=== PATIENT | female | born 1960 | race Caucasian/White ===

== ENCOUNTER 2016-09-13 10:24 | Emergency (ER) | payer OTHER ==
[~2016-09-13] VITALS: Ht 175.3 cm; Wt 65.9 kg
[2016-09-13 10:30] VITALS: BP 134/85; PULSE 77; RESP 14; O2SAT 100
--- NOTE | 2016-09-13 10:51 | ED.REPORT ---
HPI-General Illness Date of Service Sep 13, 2016 ED Provider: Dr. Castellanos Pt is a 56 year old female with a hx of hyperlipidemia presenting to the ED complaining of intermittent palpitations lasting for a few seconds onset when she woke up this morning. Associated symptoms include fatigue and weakness. She states that throughout the night last night, she kept having Charley horses intermittently. She was taking baby Aspirin daily for the Charley horses, which she gets regularly, but was told not to take it anymore so she stopped. For the last year, she has noticed that her heart has been beating faster than normal when she stands up or walks around. She denies any history of cancer, PE, DVT, heart disease, recent travel, or recent trauma or injury. Nursing Notes Stated Complaint: CHEST PAIN Chief Complaint: Chest Pain Nursing Notes Reviewed: Yes Allergies: Coded Allergies: No Known Allergies (Unverified , 09/13/16) Scheduled Cholecalciferol (Vitamin D3) (Vitamin D) 400 Unit/1 Ml Drops 400 UNIT PO DAILY General Time Seen by MD: 10:50 Chief Complaint Other (Palpitations) Hx Obtained From: Patient Arrived By: Walk-in Sudden in Onset?: Yes Onset Occurred: Just prior to arrival Symptom Duration: Since onset Severity: Current: No pain currently Severity: Maximum: No pain Recent Healthcare: No recent doctor visit, No recent hospitalization Similar Sx Previous: No Past Medical History Past Medical History UTIs hyperlipidemia Past Surgical History denies Smoking History Unknown if Ever Smoker Ambulatory Status Independent Review of Systems Charley horses Full Review of Systems Constitutional: Reports: Weakness - generalized Respiratory: Denies: Shortness of breath Cardiovascular: Reports: Palpitations, Denies: Chest pain Complete sys rev & neg: except as marked. Physical Exam Vital Signs Vital Signs Date Time Temp Pulse Resp B/P Pulse Ox O2 Delivery O2 Flow Rate FiO2 09/13/16 14:25 36.5 71 16 136/80 99 Room Air 09/13/16 12:18 92 126/86 09/13/16 12:15 71 115/70 09/13/16 10:30 36.5 77 14 134/85 100 Room Air Initial VS: Reviewed General/Constitutional: Well-developed, Well-nourished Head / Eyes: Atraumatic, Normocephalic, PERRL ENT: Mucous membranes moist, Conjunctiva normal, No scleral icterus Neck: Supple, Non-tender, Full range of motion Respiratory: Breath sounds normal, Clear to auscultation, No respiratory distress Abdomen / GI: Soft, Non-tender, No guarding, No rebound, No distention Extremities: Vascular intact, Neuro intact, No swelling, No tenderness Skin: Warm, Dry, No cyanosis Neurologic: Alert, Oriented, Nonfocal Psychiatric: Mood/affect normal, Behavior normal, Normal thought content Cardiovascular: Heart rate NL, Regular rhythm, Heart sounds NL, No gallop, No murmurs, No rubs Interpretation & Diagnostics Lab Results Interpretation Result Diagram: 09/13/16 1102 09/13/16 1102 Test 09/13/16 11:02 09/13/16 11:04 09/13/16 11:43 09/13/16 13:05 White Blood Count 6.2th/mm3 (3.8-10.1) Red Blood Count 4.97mil/mm3 (3.90-5.20) Hemoglobin 14.2g/dL (12.0-15.6) Hematocrit 41.5% (35.0-46.0) Mean Corpuscular Volume 83.5fL (81-100) Mean Corpuscular Hemoglobin 28.6pg (27.0-35.0) Mean Corpuscular Hemoglobin Concent 34.2% (32.0-37.0) Red Cell Distribution Width 12.7% (12.3-15.4) Platelet Count 208bil/L (150-400) Neutrophils (%) (Auto) 74.0% (40-74) Lymphocytes (%) (Auto) 19.6% (14-46) Monocytes (%) (Auto) 4.7% (4-12) Eosinophils (%) (Auto) 1.3% (0-5) Basophils (%) (Auto) 0.2% (0-3) Sodium Level 138mEq/L (134-144) Potassium Level 4.3mEq/L (3.5-5.2) Chloride Level 100mEq/L (97-108) Carbon Dioxide Level 26mmol/L (18-29) Blood Urea Nitrogen 18mg/dL (6-24) Creatinine 0.76mg/dL (0.57-1.00) Estimat Glomerular Filtration Rate 113mL/min (>59) Glucose Level 118mg/dL (60-99) Calcium Level 9.6mg/dL (8.5-10.1) Magnesium Level 2.0mg/dL (1.6-2.6) Total Bilirubin 0.6mg/dL (0.0-1.2) Aspartate Amino Transf (AST/SGOT) 25U/L (0-50) Alanine Aminotransferase (ALT/SGPT) 12U/L (0-32) Alkaline Phosphatase 117U/L (25-150) Total Protein 7.7g/dL (6.4-8.4) Albumin 4.3g/dL (3.4-5.0) Hold Urine Received (Received) D-Dimer < 0.50mg/L FEU (<0.50) Thyroid Stimulating Hormone (TSH) 1.340uIU/mL (0.450-4.500) Troponin T < 0.010ug/L (0.0-0.011) ECG Interpretation Time: 11:01 Interpreted by: ED physician Normal ECG Interpretation: Normal ECG w/ rate of... (73), Normal sinus rhythm Time: 13:53 Interpreted by: ED physician Normal ECG Interpretation: Normal ECG w/ rate of... (67) X-Ray Chest Interpretation Chest Xray Interpretation: IMPRESSION: Normal for age, source of chest pain is not seen. Dictated by: Darrius Bains M.D. on 09/13/2016 at 11:21 View: Portable, 1 view Interpretation / Wet Read by: Interpret - Radiologist Re-Eval/Medical Decision Med Decision/Clinical Course Palpitations, symptoms are not typical of acute coronary syndrome, serial troponins, d-dimer, TSH and EKGs are all reassuring. Patient has been asymptomatic since in the ER. Will discharge and recommend strict outpatient follow-up and return precautions. Time of Eval: 11:27 Patient Status: Condition improved Re-Evaluation/Progress Note: Discussed the pt's heart rhythm. Pt reports that she is an occasional drinker and that she last drank alcohol yesterday. Time of Eval: 14:09 Patient Status: Condition improved Re-Evaluation/Progress Note: Discussed plan for discharge. Pt understands and agrees with plan. Counseled Regarding: Diagnosis, Lab results, Need for follow-up, When/why to return to ED Discharge & Departure Primary Impression: Palpitation Disposition: Home Discharge Condition All VS Reviewed: Yes Condition: Improved Patient Instructions: Palpitations (ED) Additional Instructions: No dangerous cause for your heart palpitations was identified today. Your x ray , labs, and EKGs all looked good. They did not show any sign of heart attack or blood clot. Return to the ER if you develop any new or worsening symptoms such as worsening palpitations, loss of consciousness, or crushing chest pain. Take 81 mg daily of aspirin. Follow up with your primary care doctor in the next week for further cardiology testing. Referrals: [facility] [place] Attestation Portions of this note were transcribed by Sobeida Young. I, Dr. Castellanos personally performed the history, physical exam and medical decision-making; I reviewed and confirmed the accuracy of the information in the transcribed note. Signed by: Andrzej Mendoza, 09/13/2016 at 1420. copies to: [facility] eSrgei Castellanos DO Sep 13, 2016 10:51 SOBEIDA YOUNG Sep 13, 2016 11:00
[2016-09-13] MEDS ORDERED: CHOL400D9 PO (10:52)
[2016-09-13 11:06] LABS: BASOPHILS % (AUTO) 0.2 % (0-3); EOSINOPHILS % (AUTO) 1.3 % (0-5); MONOCYTES % (AUTO) 4.7 % (4-12); Mean Corpuscular Hemoglobin 28.6 pg (27.0-35.0); Mean Corpuscular Volume 83.5 fL (81-100); Platelet Count 208 bil/L (150-400)
--- NOTE | 2016-09-13 11:23 | DRSVH ---
PROCEDURE: X-RAY CHEST ONE VIEW, PORTABLE ([id number]) INDICATIONS: chest pain TECHNIQUE: One view of the chest was acquired. COMPARISON: None. FINDINGS: Surgical changes and devices: None. Lungs and pleura: No pleural effusions or pneumothorax. Lungs are clear. Mediastinum: Mediastinal contours appear normal. Heart size is normal. Bones and chest wall: No suspicious bony lesions. Overlying soft tissues appear unremarkable. IMPRESSION: Normal for age, source of chest pain is not seen. Dictated by: Darrius Bains M.D. on 09/13/2016 at 11:21 Approved by: Darrius Bains M.D. on 09/13/2016 at 11:21
[2016-09-13 11:28] LABS: TROPONIN T 0.01 ug/L (0.0-0.011)
[2016-09-13 12:15] VITALS: BP 115/70; PULSE 71
[2016-09-13 12:18] VITALS: BP 126/86; PULSE 92
[2016-09-13 14:25] VITALS: BP 136/80; PULSE 71; RESP 16; O2SAT 99
== END 2016-09-13 14:26 | disposition home or self-care (01) ==
LOC: SED 10:24
DX: R00.2 Palpitations (principal); E78.5 Hyperlipidemia, unspecified